=== PATIENT | female | born 1955 | race Two or more races ===

== ENCOUNTER 2017-12-13 13:50 | Outpatient (CLI) | payer OTHER | END 2017-12-13 13:58 | disposition home or self-care (01) | LOC: MAMO-SONO 13:50 | DX: Z12.31 Encounter for screening mammogram for malignant neoplasm of breast (principal); N60.11 Diffuse cystic mastopathy of right breast; N60.12 Diffuse cystic mastopathy of left breast ==

== ENCOUNTER → 2019-01-07 | Outpatient (CLI) | payer OTHER | END | disposition home or self-care (01) | LOC: MAMO-SONO 13:45 | DX: N64.4 Mastodynia (principal) ==

== ENCOUNTER 2020-02-02 11:24 | Outpatient (CLI) | payer OTHER | END 2020-02-02 11:27 | disposition home or self-care (01) | LOC: MAMO-SONO 11:24 | PROVIDERS: ATTEND Surgery Surgical Oncology | DX: Z12.31 Encounter for screening mammogram for malignant neoplasm of breast (principal); N60.11 Diffuse cystic mastopathy of right breast; N60.12 Diffuse cystic mastopathy of left breast ==

== ENCOUNTER 2020-03-14 11:00 | Outpatient (CLI) | payer OTHER | END 2020-03-14 11:36 | disposition home or self-care (01) | LOC: NUCLEAR 11:00 | PROVIDERS: ATTEND Obstetrics & Gynecology Obstetrics | DX: M81.0 Age-related osteoporosis without current pathological fracture (principal) ==

== ENCOUNTER 2020-03-24 13:56 | Outpatient (CLI) | payer OTHER | END 2020-03-24 14:02 | disposition home or self-care (01) | LOC: SONOGRAMA 13:56 | DX: M75.101 Unspecified rotator cuff tear or rupture of right shoulder, not specified as traumatic (principal); M25.412 Effusion, left shoulder; M65.88 Other synovitis and tenosynovitis, other site ==

== ENCOUNTER 2020-05-04 14:40 | Outpatient (CLI) | payer OTHER | END 2020-05-04 14:57 | disposition home or self-care (01) | LOC: RAD 14:40 | PROVIDERS: ATTEND Orthopaedic Surgery | DX: M19.011 Primary osteoarthritis, right shoulder (principal); M19.012 Primary osteoarthritis, left shoulder ==

== ENCOUNTER 2020-06-30 05:56 | Day surgery (SDC) | payer OTHER ==
[~2020-06-30 05:56] MED LIST: COZAAR50 MG PO; NORVASC2.5 MG PO
== END 2020-06-30 11:00 | disposition home or self-care (01) ==
LOC: CIR.AMB 05:56
PROVIDERS: ATTEND Orthopaedic Surgery
DX: M75.122 Complete rotator cuff tear or rupture of left shoulder, not specified as traumatic (principal); M75.22 Bicipital tendinitis, left shoulder; Z20.828 Contact with and (suspected) exposure to other viral communicable diseases

== ENCOUNTER 2020-11-29 14:04 | Outpatient (CLI) | payer OTHER | END 2020-11-29 14:15 | disposition home or self-care (01) | LOC: RAD 14:04 | DX: M25.541 Pain in joints of right hand (principal); M79.641 Pain in right hand ==